=== PATIENT | female | born 1940 | race Caucasian/White ===

== ENCOUNTER → 2017-07-12 | Outpatient (REF) | LOC: ZLAB.WCH 18:51 | DX: Z01.89 Encounter for other specified special examinations (principal) ==

== ENCOUNTER → 2017-07-15 | Outpatient (REF) | LOC: ZLAB.WCH 18:20 | DX: Z01.89 Encounter for other specified special examinations (principal) ==

== ENCOUNTER → 2017-09-06 | Outpatient (REF) | LOC: ZLAB.WCH 18:21 | DX: Z01.89 Encounter for other specified special examinations (principal) ==